=== PATIENT | male | born 1950 | race Caucasian/White ===

== ENCOUNTER → 2018-07-29 | Outpatient (CLI) | payer MEDICARE, SELFPAY | END | disposition home or self-care (01) | LOC: CVS 15:00 | PROVIDERS: Family Provider Student in an Organized Health Care Education/Training Program; PCP Student in an Organized Health Care Education/Training Program; Referring Provider Student in an Organized Health Care Education/Training Program; Visit Provider Student in an Organized Health Care Education/Training Program | DX: R06.02 Shortness of breath (principal) | CPT/HCPCS: 93306; Q9957; A4216; C8929 ==

== ENCOUNTER 2023-12-31 14:48 | Emergency (ER) | payer MEDICARE, SELFPAY ==
[2023-12-31 14:50] VITALS: BP 155/106; PULSE 88; RESP 16; TEMP 36.7; O2SAT 95; BMI 44.8
--- NOTE | 2023-12-31 15:25 | RAD_ITS ---
STUDY: X-RAY - LEFT SHOULDER REASON FOR EXAM: Male, 73 years old. INJURY TECHNIQUE: 4 view(s) of the shoulder. COMPARISON: None. FINDINGS: Narrowed glenohumeral articulation. Narrowed acromioclavicular joint. Normal acromion. Normal humeral head and visualized proximal humerus. The soft tissue structures are unremarkable. Normal visualized pulmonary apex. RAD/Shoulder min 2 Views IMPRESSION: Degenerative changes. No acute fracture or dislocation Electronically Signed: Chong Trevizo MD at 16:28 EDT ,
--- NOTE | 2023-12-31 15:25 | RAD_ITS ---
STUDY: X-RAY - LEFT KNEE REASON FOR EXAM: Male, 73 years old. INJURY TECHNIQUE: 5 view(s) of the knee. COMPARISON: None. FINDINGS: Normal visualized distal femur. Normal visualized proximal tibia and fibula. Normal proximal tibiofibular articulation. Narrowed medial femorotibial compartment. Normal lateral femorotibial compartment. Normal patellofemoral articulation. The soft tissue structures are unremarkable. RAD/Knee 4 or More Views IMPRESSION: Degenerative changes. No acute fracture or other significant bony pathology. Electronically Signed: Chong Trevizo MD at 16:24 EDT ,
--- NOTE | 2023-12-31 15:25 | RAD_ITS ---
STUDY: X-RAY - LEFT WRIST REASON FOR EXAM: Male, 73 years old. INJURY TECHNIQUE: 3 view(s) of the wrist were obtained. COMPARISON: None. FINDINGS: Normal visualized distal radius and ulna. Normal radiocarpal articulation. Normal distal radioulnar articulation. Normal carpal bones. Normal carpal articulations. Mild arthritic changes of the carpometacarpal articulation of the thumb. Normal second through fifth carpometacarpal articulations. Normal visualized metacarpal bones. The soft tissue structures are unremarkable. RAD/Wrist min 3 Views IMPRESSION: Mild arthritic changes. No acute fracture or dislocation Electronically Signed: Chong Trevizo MD at 16:29 EDT ,
--- NOTE | 2023-12-31 15:25 | RAD_ITS ---
STUDY: X-RAY - RIGHT KNEE REASON FOR EXAM: Male, 73 years old. INJURY TECHNIQUE: 4 view(s) of the knee. COMPARISON: None. FINDINGS: Normal visualized distal femur. Normal visualized proximal tibia and fibula. Normal proximal tibiofibular articulation. Narrowed medial femorotibial compartment. Normal lateral femorotibial compartment. Normal patellofemoral articulation with superior patellar spur. The soft tissue structures are unremarkable. RAD/Knee 4 or More Views IMPRESSION: Degenerative changes. No acute fracture or other significant bony pathology Electronically Signed: Chong Trevizo MD at 16:23 EDT ,
[2023-12-31 19:49] VITALS: RESP 16
--- NOTE | 2023-12-31 20:31 | ED.VIS.FALL ---
HPI HPI - Fall History of Present Illness Chief Complaint: Fall Informant: patient Occured/Mechanism Occurred: Yesterday Mechanism/Context: Yes trip Pain/Injury Location: Bilateral knees, left wrist, elbow, and shoulder Quality of Pain: Sharp and Stabbing Worsened by: Movement Relieved by: Nothing Associated Symptoms Associated Symptoms: Positive for Parasthesias; Negative for Weakness, Loss of function, Inability to ambulate, Loss of consciousness or Amnesia Narrative Narrative: Patient presents with pain to both knees, left wrist, elbow, and shoulder that began after a fall yesterday. Patient states he tripped and fell. Patient may have hit his head. Patient denies any loss of consciousness. Patient admits to some tingling over his left hand. Patient denies any weakness. Patient describes his pain as stabbing. Patient states it is worse with any movement. Patient denies any other injuries. [facility] Medical History (Updated 12/31/23 @ 20:[address] Phan Barragan DO) Vertigo Diabetes COPD (chronic obstructive pulmonary disease) Medical History no medical history Allergy/AdvReac Type Severity Reaction Status Date / Time No Known Allergies Allergy Verified 12/31/23 14:52 Family History no significant family his Surgical History (Updated 12/31/23 @ 20:[address] Phan Barragan DO) Hx of cholecystectomy History of surgery on right wrist Surgical History no surgical history Social History Smoking Status: Current every day smoker tobacco type: cigarettes ROS ROS ED Constitutional Constitutional ED: Denies chills or fever(s) Eyes Eyes: Denies blurry vision or change in vision ENT ENT ED: Denies rhinorrhea or sore throat Cardiovascular Cardiovascular: Denies chest pain or palpitations Respiratory/Chest Respiratory/Chest: Denies cough or dyspnea Gastrointestinal Gastrointestinal: Denies nausea or vomiting Genitourinary Genitourinary ED: Denies dysuria or hematuria Musculoskeletal Musculoskeletal: Reports neck pain; Denies back pain Integumentary Denies abscess or rash Neurologic Neurologic: Denies headache(s) or weakness Allergic/Immunologic Allergic/Immunologic ED: Denies mouth swelling or urticaria EXAM Physical Exam Const Vital Signs: 12/31/23 14:50 12/31/23 19:46 12/31/23 19:49 Temperature 98.1 F Temperature Source Oral Pulse Rate 88 Respiratory Rate 16 16 Respiratory Effort Normal Respiratory Depth Normal Respiratory Pattern Normal Blood Pressure 155/106 H Blood Pressure Mean 122 Pulse Ox 95 Oxygen Delivery Method Room Air Room Air Positive well nourished and well developed General Appearance ED: well developed and NAD HEENT Reports normocephalic atraumatic Neck full ROM and supple Extremity Extremity Narrative: There is tenderness over the anterior aspect of the knees bilaterally. There is no edema or ecchymosis. There is no effusion noted. There is good range of motion. Extensor mechanism is intact. There is tenderness over the ulnar aspect of the left wrist and left elbow. There is also tenderness over the left shoulder area. There is no deformity noted. Range of motion was limited in all motions of the left wrist, elbow, and shoulder secondary to pain. Radial pulses are equal bilaterally. Strength is 5/5 bilaterally upper and lower extremities. There are no sensory deficits noted. Patient ambulated without difficulty. Neuro oriented x3, CN's II-XII intact bilaterally, moves all extremities, no focal motor deficits and no sensory deficits noted Warren Coma Scale: document GCS findings Spontaneous Obeys Commands Oriented 15 Sensorium / Orientation: alert Motor Exam: strength 5/5 throughout Psych mental status grossly normal MDM MDM MDM Narrative Medical decision making narrative: Differential diagnosis includes contusion, fracture, and sprain. X-rays of the bilateral knees will be obtained to assess for fracture. X-rays of the left shoulder will be obtained to assess for fracture. X-rays of the left wrist will be obtained to assess for fracture. Radiography Diagnostic Testing: Clinical Impression(s) from Imaging Studies Knee X-Ray 12/31/23 15:25 IMPRESSION: Degenerative changes. No acute fracture or other significant bony pathology. Electronically Signed: Chong Trevizo MD at 16:24 EDT , Knee X-Ray 12/31/23 15:25 IMPRESSION: Degenerative changes. No acute fracture or other significant bony pathology Electronically Signed: Chong Trevizo MD at 16:23 EDT , Shoulder X-Ray 12/31/23 15:25 IMPRESSION: Degenerative changes. No acute fracture or dislocation Electronically Signed: Chong Trevizo MD at 16:28 EDT Reading Location ID and State: [facility] / [place] Tel [phone], Service support , Wrist X-Ray 12/31/23 15:25 IMPRESSION: Mild arthritic changes. No acute fracture or dislocation Electronically Signed: Chong Trevizo MD at 16:29 EDT , X-rays of the left knee were obtained. There are 4 views. On my independent interpretation, there is no acute fracture. There is no effusion. Radiologist also interpreted the x-rays and agrees. X-rays of the right knee were obtained. There are 4 views. On my independent interpretation, there is no acute fracture or dislocation noted. There is no joint effusion noted. Radiologist also interpreted the x-rays and agrees. X-rays of the left shoulder were obtained. There are 4 views. On my independent interpretation, there is no acute fracture or dislocation noted. There are degenerative changes noted. Radiologist also interpreted the x-rays and agrees. X-rays of the left wrist were obtained. There are 3 views. On my independent interpretation, there is no acute fracture or dislocation noted. There are some degenerative changes. Radiologist also interpreted the x-rays and agrees. Treatment and Re-Evaluation Narrative: Patient was advised of his findings. Patient was instructed to do range of motion exercises to his shoulder and elbow. Patient was instructed to ice and elevate his left wrist and bilateral knees. Patient was instructed to take Tylenol or ibuprofen as needed for pain. Patient was instructed to follow-up with his primary care physician in 5 to 7 days. Patient understood and was agreeable with the plan. All questions were answered. Discharge Plan Triage Chief Complaint: Fall ED Provider: Phan Barragan Dx/Rx/DC Orders Clinical Impression: Fall, Contusion of left knee, initial encounter, Contusion of right knee, initial encounter, Contusion of left wrist, initial encounter, Contusion of left elbow, initial encounter, Contusion of left shoulder, initial encounter Instructions: ED Contusion, Lower Extremity, ED Contusion, Upper Extremity Primary Care Provider: Carole Ramsay Referrals: Carole Ramsay MD [Primary Care Provider] - 5-7 Days Print Language: Sami Disposition Disposition: Home, Self Care
[2023-12-31 20:43] VITALS: PULSE 78; RESP 18; TEMP 37.1; O2SAT 98
== END 2023-12-31 20:45 | disposition home or self-care (01) ==
LOC: ED 20:41
PROVIDERS: Emergency Provider Emergency Medicine; PCP Student in an Organized Health Care Education/Training Program; Visit Provider Emergency Medicine
DX: S80.02XA Contusion of left knee, initial encounter (principal); J44.9 Chronic obstructive pulmonary disease, unspecified; E11.9 Type 2 diabetes mellitus without complications; S80.01XA Contusion of right knee, initial encounter; S60.212A Contusion of left wrist, initial encounter; S50.02XA Contusion of left elbow, initial encounter; S40.012A Contusion of left shoulder, initial encounter; W01.0XXA Fall on same level from slipping, tripping and stumbling without subsequent striking against object, initial encounter; M19.032 Primary osteoarthritis, left wrist; F17.210 Nicotine dependence, cigarettes, uncomplicated
CPT/HCPCS: 73030; 73110; 73564; 99282